=== PATIENT | male | born 1930 | race Caucasian/White ===

== ENCOUNTER 2018-02-18 06:48 | Day surgery (SDC) | payer MEDICARE, MEDICAID ==
[~2018-02-18] VITALS: Ht 172.7 cm; Wt 100.0 kg
[~2018-02-18 06:48] MED LIST: ALBU90AE; AMLO-511 PO; ATOR10TA84 PO; CALC1TAB15 PO; FINA5TAB41 PO; FLUT16H NASAL; FURO40 PO; LISI-662 PO; MELO-107 PO; METO25XL PO; MONT10TA21 PO; OMEP20 PO; PRED10 PO; SIMV-260 PO; SODIUM CHLORIDE 0.9% 1,000 ML IV ONE; TAMS0.4C32 PO; TRAZ-219 PO
[2018-02-18] MEDS ORDERED: LIDOCAINE HCL 4% 50 ML SOLUTION TP ONE (06:49)
[2018-02-18] MEDS ORDERED: LIDOCAINE HCL 2% 30 ML JELLY TP ONE (06:49)
[2018-02-18] MEDS ORDERED: ALBUTEROL SULFATE 2.5 MG/0.5 ML NEB SOLUTION NEB ONE (06:49)
[2018-02-18] MEDS ORDERED: BENZOCAINE 20% 50 MCG/SPRAY 57 GM TP ONE (06:49)
[2018-02-18] MEDS ORDERED: KETO.5OS OU (07:24)
[2018-02-18] MEDS ORDERED: GABA-531 PO (07:24)
[2018-02-18] MEDS ORDERED: ASPI-1182 PO (07:24)
[2018-02-18] MEDS ORDERED: LEVO500T89 PO (07:24)
[2018-02-18] MEDS ORDERED: SODIUM CHLORIDE 0.9% 1,000 ML IV ONE (07:30)
[2018-02-18] MEDS ORDERED: FentaNYL CITRATE-PF 100 MCG/2 ML VIAL ONE (08:10)
[2018-02-18] MEDS ORDERED: MIDAZOLAM HCL 2 MG/2 ML VIAL ONE (08:10)
[2018-02-18] MEDS ORDERED: MethylPREDNISolone SOD SUCC 125 MG/2 ML VIAL IVP ONE (09:45)
[2018-02-18] MEDS ORDERED: MethylPREDNISolone SOD SUCC 125 MG/2 ML VIAL ONE (09:47)
[2018-02-18] MEDS ORDERED: OXYGEN THERAPY IH SCH (20:00)
== END 2018-02-18 10:55 | disposition home or self-care (01) ==
LOC: SURGERY 06:48
PROVIDERS: ATTEND Internal Medicine Critical Care Medicine
DX: J38.4 Edema of larynx (principal); B37.0 Candidal stomatitis; J45.998 Other asthma; E78.00 Pure hypercholesterolemia, unspecified; E11.9 Type 2 diabetes mellitus without complications; I10 Essential (primary) hypertension; M19.90 Unspecified osteoarthritis, unspecified site; J84.111 Idiopathic interstitial pneumonia, not otherwise specified; Z87.891 Personal history of nicotine dependence; Z79.52 Long term (current) use of systemic steroids; Z79.84 Long term (current) use of oral hypoglycemic drugs; Z79.82 Long term (current) use of aspirin; Z79.891 Long term (current) use of opiate analgesic; Z98.41 Cataract extraction status, right eye; Z98.42 Cataract extraction status, left eye; Z90.49 Acquired absence of other specified parts of digestive tract; Z79.899 Other long term (current) drug therapy; Z98.890 Other specified postprocedural states
CPT/HCPCS: 31623; 31624; 71045; 87015; 87070; 87205; 87206; 87220; 88108; 88184; 88185; 88312; J2250; J2930; J3010; J7030